=== PATIENT | male | born 1960 | race African-American/Black ===

== ENCOUNTER 2019-11-09 12:34 | Day surgery (SDC) | payer OTHER ==
[2019-11-07 10:08] VITALS: BMI 20.9
[2019-11-09 16:31] VITALS: TEMP 98
[2019-11-09 16:45] VITALS: BP 127/82; PULSE 66
--- OUTSIDE RECORDS SUMMARY | 2019-11-09 17:18 | XMS ---
:1960 [facility] Providers Name Role Phone Lulizbeth, Jennifer Unavailable Unavailable Lufrano, Jennifer Unavailable Unavailable Lufrano, Jennifer Unavailable Unavailable Lufrano, Jennifer Unavailable Unavailable Lufrano, Jennifer Unavailable Unavailable Lufrano, Jennifer Unavailable Unavailable Lufrano, Jennifer Unavailable Unavailable Re-disclosure Warning The records that you are about to access may contain information from federally- assisted alcohol or drug abuse programs. If such information is present, then the following federally mandated warning applies: This information has been disclosed to you from records protected by federal confidentiality rules (42 CFR part 2). The federal rules prohibit you from making any further disclosure of this information unless further disclosure is expressly permitted by the written consent of the person to whom it pertains or as otherwise permitted by 42 CFR part 2. A general authorization for the release of medical or other information is NOT sufficient for this purpose. The Federal rules restrict any use of the information to criminally investigate or prosecute any alcohol or drug abuse patient.The records that you are about to access may contain highly sensitive health information, the redisclosure of which is protected by Article 27-F of the [facility] Public Health law. If you continue you may haveaccess to information: Regarding HIV / AIDS; Provided by facilities licensed or operated by the [facility] Office of Mental Health; or Provided by the [facility] Office for People With Developmental Disabilities. If such information is present, then the following [facility] mandated warning applies: This information has been disclosed to you from confidential records which are protected by state law. State law prohibits you from making any further disclosure of this information without the specific written consent of the person to whom it pertains, or as otherwise permitted by law. Any unauthorized further disclosure in violation of state law may result in a fine or fdc sentence or both. A general authorization for the release of medical or other information is NOT sufficient authorization for further disclosure. Encounters Encounter Providers Location Date Indications Data Source(s ) Attender: Jennifer 10/24/2019 [facility] (S [facility] 12:00:00 AM EDT Medical, PC) Office Medications Medication Brand Start Product Dose Route Administrative Pharmacy [facility] Indications Reaction Description Data Name Date Form Instructions Instructions Source(s) SUPREP LIQUID 1 complet SUPREP ENMANUEL L [facility] ( BOWEL PREP 2019 ed PREP KIT [facility] KIT:[id number] 12:00: Medica l, 00 AM PC) EDT SUPREP complet SUPREP BOWEL [facility] ( BOWEL PREP 2019 ed PREP KIT [facility] KIT: 12:00: Medical, 00 AM PC) EDT VITAMIN D3: complet VITAMIN D3 [facility] (St 2019 ed [facility] 12:00: Medical, 00 AM PC) EST Simvastatin SIMVAS complet SIMVAS TATIN [facility] (St 5 MG Oral TATIN: 2019 ed [facility] Tablet [id number] 12:00: Medical, SIMVASTATIN 00 AM PC) :[id number] EST Aspirin 81 ASPIRI complet ASPIRIN [facility] (St MG Delayed N:3084 2018 ed [facility] Release 16 12:00: Medical, Oral Tablet 00 AM PC) ASPIRIN:308 EST 416 SUPREP LIQUID 1 complet SUPREP ENMANUEL L [facility] (St BOWEL PREP 2019 ed PREP KIT [facility] KIT:[id number] 12:00: Medica l, 00 AM PC) EST Amlodipine AMLODI complet AMLODIP INE [facility] (St 2.5 MG Oral PINE 2019 ed BESYLATE [facility] Tablet BESYLA 12:00: Medical, AMLODIPINE TE:308 00 AM PC) BESYLATE:30 136 EST 8136 Lisinopril LISINO complet LISINOP RIL [facility] (St 10 MG Oral PRIL:3 2018 ed [facility] Tablet [id number] 12:00: Medical, LISINOPRIL: 00 AM PC) [id number] EST quetiapine QUETIA QUETIAP INE [facility] (St 50 MG Oral PINE:6 2019 ed [facility] Tablet [id number] 12:00: Medical, QUETIAPINE: 00 AM PC) [id number] EST Insurance Providers Payer name Policy type Policy ID Covered Covered republican's Policy P cassi / Coverage republican ID relationship to Mchugh Inf ormation type mchugh [facility] [id number] SP [id number] CARE [facility] [id number] 1 [id number] PLANS [facility] [id number] S [id number] Options MKD Dental [id number] S [id number] [employer] MKD [place] [id number] S [id number] 600 Vision MKD Medicaid [id number] S [id number] Regular Clinic Visit [facility] Medicaid [id number] S [id number] Managed Care Problems, Conditions, and Diagnoses Code Display Name Description Problem Type Effective Data Sour ce(s) Dates Z12.11 Encounter for ENCOUNTER FOR Problem 04/05/2018 [facility] ( [facility] screening for SCREENING FOR 12:00:00 AM Ye , YAMILET) malignant MALIGNANT EST neoplasm of colon NEOPLASM OF COLON Z23 Encounter for Encounter for Diagnosis 04/23/2018 LIGIA ([place] immunization immunization 04:03:22 PM [facility]) Surgeries/Procedures Procedure Description Date Indications Data Source(s) Documentation of current 10/24/2019 [facility] ([facility] medications (procedure) 12:00:00 AM YAMILET Guzman) OFFICE CONSULTATION 10/24/2019 [facility] ( [facility] NEW/ESTAB PATIENT 40 MIN 12:00:00 AM YAMILET Taylor) Documentation of current 04/05/2018 [facility] ([facility] medications (procedure) 12:00:00 AM YAMILET Aguayo) Documentation of current 04/05/2018 [facility] ([facility] medications (procedure) 12:00:00 AM YAMILET Aguayo) Documentation of current 04/05/2018 [facility] ([facility] medications (procedure) 12:00:00 AM YAMILET Aguayo) Documentation of current 04/05/2018 [facility] ([facility] medications (procedure) 12:00:00 AM YAMILET Aguayo) OFFICE CONSULTATION 04/05/2018 [facility] ( [facility] NEW/ESTAB PATIENT 40 MIN 12:00:00 AM EST [facility], ) Results ID Date Data Source [id number] 11/04/2019 01:30:00 PM EDT [facility] Name Value Range Interpretation Description Data Sup porting Code Source(s) Document(s ) SARS [facility] coronavirus 2 RNA This lab was ordered by [facility] and reported by [facility]. Procedure Social History Code Duration Value Status Description Data Source(s ) Smoking 10/24/2019 never smoke , completed never smoke , never ME [facility]GEN ([facility] 12:00:00 AM EDT never drinks drinks [facility] , ) Smoking 10/24/2019 Unknown if ever completed Unknown if ever MEDG EN ([facility] 12:00:00 AM EDT smoked smoked [facility]) Vital Signs ID Date Data Source UNK Name Value Range Interpretation Code Description Data Source(s) Heart rate 80 /min 80 /min [facility] ([facility]) Inhaled oxygen 99 % 99 % [facility] ([facility]) Body mass index 21.9 kg/m2 21.9 kg/m2 [facility] (S t (BMI) [Ratio] [facility]) Diastolic blood 70 mm[Hg] 70 mm[Hg] [facility] (S t pressure [facility]) Systolic blood 125 mm[Hg] 125 mm[Hg] [facility] ([facility]) Body weight 116 lb 116 lb [facility] ([facility]) Body height 61 in 61 in [facility] ([facility])
== END 2019-11-09 15:10 | disposition home or self-care (01) ==
LOC: FASU-ENDO 12:34
PROVIDERS: ATTEND Internal Medicine Gastroenterology
PROC: 0DJD8ZZ Inspection of Lower Intestinal Tract, Via Natural or Artificial Opening Endoscopic (ICD-10-PCS; principal; 2019-11-09 13:57)
DX: Z12.11 Encounter for screening for malignant neoplasm of colon (principal); K64.1 Second degree hemorrhoids